=== PATIENT | male | born 1945 | race Caucasian/White ===

== ENCOUNTER 2024-12-26 12:08 | Emergency (ER) | payer MEDICARE, OTHER, SELFPAY ==
[2024-12-26 12:09] VITALS: BP 142/101
[2024-12-26 12:22] VITALS: BP 149/94
--- NOTE | 2024-12-26 12:34 | ED.GENMED ---
History of Present Illness
<Debbie Lui PA-C - Last Filed: 12/26/24 16:18>
General
Chief Complaint: Weakness
Source: patient and family
Exam Limitations: none
Time Seen by Provider: 12/26/24 12:16
History of Present Illness
History of Present Illness:
79yoM with history of type 2 diabetes, hypertension, hyperlipidemia, depression, and prior cervical fusion presenting with his for evaluation of balance issues. He has been having gait disturbance since about 2019. He had a fall in October
and landed directly on his back. He had back pain after the injury. He had a follow-up CT cervical spine and MRI of his thoracic and lumbar spine which showed a T11 compression fracture with moderate height loss. No significant spinal canal
narrowing was noted. He followed up with [facility] who felt the fracture was stable and was expected to heal within 3 months without intervention. Patient no longer has any back pain. He fell 2 days ago while at a restaurant. He states
he stood up to get out of fell forward. No preceding dizziness. He did not hit his head or lose consciousness. He denies any injuries from this fall. Since then, his balance issues have seemed worse and he is nervous that he will fall again. He
states it feels like his feet are stuck in cement. He has been using a walker for the past 2 days because of this. His family is frustrated because no one has imaged his head recently. He has seen neurology several times. He is otherwise feeling
well and denies any fevers, chills, vomiting, diarrhea, chest pain, shortness of breath, dysuria, headache, dizziness, incontinence, paresthesias, extremity weakness.
Phy Exam
<Debbie Lui PA-C - Last Filed: 12/26/24 16:18>
General Physical Exam
General Presentation: well appearing and no apparent distress
General Skin: warm and dry
General Habitus: normal
General Mental: alert
ENT Exam
ENT Exam: normocephalic and other (No external signs of head trauma. No cervical spine tenderness. )
Eye Exam
Eye Exam: PERRL and conjunctiva normal
Cardiovascular Exam
Cardiovascular Exam: regular rate/rhythm
Pulmonary Exam
Pulmonary Exam: lungs clear, no respiratory distress, no rales, no crackles, no rhonchi and no wheezing
Neurological Exam
Neurological Exam: alert, speech normal and other (5/5 strength in bilateral lower extremities)
[place] Coma Scale
Eye Opening: Spontaneous
Verbal Response: Oriented
Motor Response: Obeys Commands
GCS Total Score: 15
Musculoskeletal Exam
Musculoskeletal Exam: other (No C/T/L spine tenderness)
Skin Exam
Skin Exam: normal color and warm/dry
Psychiatric Exam
Psychiatric Exam: normal mood/affect
<Ivanna Pantoja MD - Last Filed: 12/26/24 14:57>
[place] Coma Scale
GCS Total Score: 15
Course
<Debbie Lui PA-C - Last Filed: 12/26/24 16:18>
Orders/Labs/Results
Orders:
Orders
12/26/24 12:34
Electrocardiogram (*1) Urgent
Reason for Study: QTc Monitoring
CT Head W/o Iv Contrast Urgent
Comment:
Reason For Exam: balance issues
EKG- Treatment ONCE
12/26/24 12:52
Complete Blood Count/With Diff Urgent
Comprehensive Metabolic Panel Urgent
TSH Reflex To Free T4 Urgent
12/26/24 14:29
Urinalysis Reflex To Culture Urgent
Date Specimen was Collected: 12/26/24
Time Specimen was Collected: 14:16
Abnormal Lab Results
12/26/24 12/26/24
12:52 14:29
RBC 4.50 L 10^6/uL
(4.70-6.10)
MCH 31.1 H pg
(27.0-31.0)
Absolute Monos (auto) 0.7 H 10^3/uL
(0.1-0.6)
Glucose 181 H mg/dl
(70-99)
Total Bilirubin 1.9 H mg/dl
(0.2-1.3)
Urine Glucose 4+ A
(Negative)
12/26/24 12:52
12/26/24 12:52
Vital Signs
Initial and Last Documented VS:
Initial Vital Signs
Temp Pulse Resp BP Pulse Ox
98.6 F 110 18 142/101 96
12/26/24 12:09 12/26/24 12:09 12/26/24 12:09 12/26/24 12:09 12/26/24 12:09
Last Documented Vital Signs
Temp Pulse Resp BP Pulse Ox
98.6 F 101 19 144/89 95
12/26/24 12:09 12/26/24 15:15 12/26/24 15:15 12/26/24 15:00 12/26/24 15:15
<Ivanna Pantoja MD - Last Filed: 12/26/24 14:57>
Orders/Labs/Results
Orders:
Orders
12/26/24 12:34
Electrocardiogram (*1) Urgent
Reason for Study: QTc Monitoring
CT Head W/o Iv Contrast Urgent
Comment:
Reason For Exam: balance issues
EKG- Treatment ONCE
12/26/24 12:52
Complete Blood Count/With Diff Urgent
Comprehensive Metabolic Panel Urgent
TSH Reflex To Free T4 Urgent
12/26/24 14:29
Urinalysis Reflex To Culture Urgent
Date Specimen was Collected: 12/26/24
Time Specimen was Collected: 14:16
Abnormal Lab Results
12/26/24 12/26/24
12:52 14:29
RBC 4.50 L 10^6/uL
(4.70-6.10)
MCH 31.1 H pg
(27.0-31.0)
Absolute Monos (auto) 0.7 H 10^3/uL
(0.1-0.6)
Glucose 181 H mg/dl
(70-99)
Total Bilirubin 1.9 H mg/dl
(0.2-1.3)
Urine Glucose 4+ A
(Negative)
12/26/24 12:52
12/26/24 12:52
Vital Signs
Initial and Last Documented VS:
Initial Vital Signs
Temp Pulse Resp BP Pulse Ox
98.6 F 110 18 142/101 96
12/26/24 12:09 12/26/24 12:09 12/26/24 12:09 12/26/24 12:09 12/26/24 12:09
Last Documented Vital Signs
Temp Pulse Resp BP Pulse Ox
98.6 F 101 19 144/89 95
12/26/24 12:09 12/26/24 15:15 12/26/24 15:15 12/26/24 15:00 12/26/24 15:15
<Debbie Lui PA-C - Last Filed: 12/26/24 16:18>
MDM/Problems Addressed
Differential Diagnosis Includes:
79yoM here with acute on chronic balance issues. Started in 2018 but worsening over the past few days. Had a fall 2 days ago and now using a walker. Recent dx of T11 fracture in October but no complaints of back pain, paresthesias, incontinence.
HR 110 in triage. He is well appearing in no distress. 5/5 strength noted in bilateral lower extremities. Differential diagnosis includes but is not limited to: ambulatory dysfunction, normal pressure hydrocephalus, myelopathy from prior cervical
fusion, less likely acute CVA
Initial ED plan: Check CBC, CMP, TSH, UA, EKG, and CT head.
<Debbie Lui PA-C - Last Filed: 12/26/24 16:18>
*Pulse Oximetry
SaO2: 97
Oxygen Mode of Delivery: Room air
Patient hypoxic: no
*EKG
Interpreted by ED Provider?: Yes
EKG Intrepretation Date: 12/26/24
Heart Rate: 101
Rate: tachycardiac
Rhythm: sinus
[place]: left axis deviation
Interval: normal interval
QRS Pattern: normal QRS
Ischemia: no ischemia
*Critical Care Note
Total Time (30-74mins, 75-104mins- exclusive of procedures): Not Applicable
<Debbie Lui PA-C - Last Filed: 12/26/24 16:18>
Update Note
Update Note:
Labs unremarkable including normal renal function and TSH. No hematuria or signs infection on urinalysis. Head CT is negative for acute findings. Offered PT evaluation which patient declines. He is scheduled to see outpatient physical therapy
next week. He also has an appointment with his PCP scheduled in 3 days. No indication for hospitalization at this time. He was encouraged to follow-up with neurology. and daughter in agreement with plan and he was discharged in stable
condition.
ED Attending Note
<Debbie Lui PA-C - Last Filed: 12/26/24 16:18>
-
Portions of this chart may have been created with voice recognition software.� Occasional wrong word or��sound alike� substitutions may have occurred due to the inherent limitations of voice recognition software.
<Ivanna Pantoja MD - Last Filed: 12/26/24 14:57>
ED Attending Note
Patient seen and examined by attending physician: Yes
I performed the substantive portion of visit, reviewed & personally made and approve the management plan that is documented in note by myself or KANG.: Yes
ED Attending Note:
79 yr old male with difficulty with balance for some time, noted to have more frequent falls, most recently 2 days ago. No preceding sxs such as cp/sob/n/t/headache. Has had extensive neuro w/u, including his spine eval,
Discharge Plan
Departure
Patient Disposition: Home (Routine Discharge)
Date of Disposition: 12/26/24
Time of Disposition: 15:29
Patient with high blood pressure during this ER visit?: Yes
Discharge Problem:
Balance problem
Instructions: Fall Prevention for Older Adults
Prescriptions:
No Action
lisinopril 20 mg Tablet
20 mg PO DAILY
Theragen Tablet
1 tab PO DAILY
repaglinide 0.5 mg Tablet
0.5 mg PO DAILY@0700
dicyclomine 10 mg Capsule
10 mg PO DAILY@0700
esomeprazole magnesium [Nexium] 20 mg Capsule,Delayed Release(Dr/Ec)
20 mg PO DAILY@0700
rosuvastatin 5 mg Tablet
5 mg PO QPM
duloxetine 20 mg Capsule,Delayed Release(Dr/Ec)
20 mg PO DAILY
mirabegron [Myrbetriq] 25 mg Tablet Extended Release 24 Hr
25 mg PO QPM
icosapent ethyl [Vascepa] 1 gram Capsule
2 g PO BID
psyllium husk [Metamucil] 0.4 gram Capsule
0.8 g PO QPM
Synjardy XR 5-1,000 mg Tablet, Ir - Er, Biphasic 24hr
1 tab PO BID
Referrals:
Gonsalo De Leon MD [Family Provider, Internal Medicine]
Martin Galloway MD [Active, Neurology]
Activity Restrictions/Additional Instructions:
Please call Saturday to schedule a follow-up appointment with a neurologist. You should also see your family doctor and physical therapy next week as previously scheduled.
Return to the ER with any new or worsening symptoms.
Interventions
Interventions:
*Risk Screen - Suicide Last Done: 12/26/24 12:09
*General Assessment Last Done: 12/26/24 12:09
*Neglect/Abuse Screening Last Done: 12/26/24 12:09
*ED- Fall Risk Assessment Last Done: 12/26/24 12:09
*ED COVID-19 Vaccine History Last Done: 12/26/24 12:09
*ED Influenza Vaccine History Last Done: 12/26/24 12:09
ED- Cardiac Assessment Last Done: 12/26/24 13:01
ED- Neurological Assessment Last Done: 12/26/24 13:01
ED- Pulmonary Assessment Last Done: 12/26/24 13:01
Discharge Date and Time
Print Language: BELARUSIAN
[2024-12-26 12:43] VITALS: BMI 24.8
[2024-12-26 12:58] LABS: Hematocrit 39.3 % (39.0-52.0); Hemoglobin 14.0 g/dL (13.0-18.0); Mean Corp Hgb Conc. 35.6 g/dL (33.0-37.0); Mean Corpuscular Volume 87.3 fL (80.0-94.0); Nucleated Red Blood Cells % 0 % (-); Platelet Count 247 10^3/uL (130-400); Red Cell Dist. Width 14.3 % (11.5-14.5)
[2024-12-26 13:00] VITALS: BP 142/91
[2024-12-26 13:20] LABS: ALT (SGPT) 17 U/L (0-50); AST (SGOT) 22 U/L (17-59); Albumin 4.2 g/dl (3.5-5.0); Alkaline Phosphatase 40 U/L (38-126); Blood Urea Nitrogen 16 mg/dl (9-20); Calcium 8.8 mg/dl (8.4-10.2); Carbon Dioxide 24 mmol/L (22-30); Chloride 107 mmol/L (98-107); Estimated Creatinine Clearance 65 ml/min; Glucose 181 mg/dl (70-99); Potassium 3.9 mmol/L (3.5-5.1); Sodium 139 mmol/L (135-145); Total Protein 6.7 g/dl (6.3-8.2); eGFR > 60.00
[2024-12-26 14:00] VITALS: BP 133/91
[2024-12-26 14:35] LABS: Urine Character Clear (Clear)
[2024-12-26 14:47] VITALS: BP 140/92
[2024-12-26 15:00] VITALS: BP 144/89
== END 2024-12-26 15:42 | disposition home or self-care (01) ==
LOC: EMR 12:08
PROVIDERS: Physician Assistant; EMERGENCY PHYSICIAN Emergency Medicine; FAMILY PHYSICIAN Internal Medicine
DX: R26.89 Other abnormalities of gait and mobility (principal); R00.0 Tachycardia, unspecified; E11.9 Type 2 diabetes mellitus without complications; I10 Essential (primary) hypertension; E78.5 Hyperlipidemia, unspecified; F32.A Depression, unspecified; Z91.81 History of falling; Z79.84 Long term (current) use of oral hypoglycemic drugs
CPT/HCPCS: 99284; 70450; 80053; 81003; 84443; 85025; 93005